=== PATIENT | female | born 1975 | race Caucasian/White ===

== ENCOUNTER 2017-12-16 15:12 | Emergency (ER) | payer MEDICARE, MEDICAID ==
[~2017-12-16] VITALS: Ht 162.6 cm; Wt 60.0 kg
[2017-12-16 15:19] VITALS: BP 134/73
[2017-12-16] MEDS ORDERED: LORazepam 1MG TABLET ONE (15:25)
[2017-12-16] MEDS ORDERED: LORazepam 1MG TABLET PO ONE (15:30)
[2017-12-16] MEDS ORDERED: PLEASE ENTER HEIGHT AND WEIGHT MC SCH (15:30)
[2017-12-16 15:41] LABS: BASOPHILS % (AUTO) 1 % (0-1); EOSINOPHILS # (AUTO) 0.03 x10^3/uL (0-0.4); EOSINOPHILS % (AUTO) 0 % (1-7); LYMPHOCYTES # (AUTO) 2.08 x10^3/uL (1-3.4); LYMPHOCYTES % (AUTO) 20 % (22-44); MD NO; MEAN CORPUSCULAR HEMOGLOBIN 24.2 pg (27.0-34.8); MEAN CORPUSCULAR HGB CONC 32.2 g/dL (32.4-35.8); MEAN PLATELET VOLUME 9.3 fL (7.4-10.4); MONOCYTES # (AUTO) 0.67 x10^3/uL (0.2-0.8); MONOCYTES % (AUTO) 6 % (2-9); NEUTROPHILS # (AUTO) 7.66 x10^3/uL (1.8-6.8); NEUTROPHILS % (AUTO) 73 % (42-75); PLATELET COUNT 318 x10^3/uL (130-400); RED BLOOD COUNT 4.95 x10^6/uL (3.82-5.3); RED CELL DISTRIBUTION WIDTH 20.2 % (9.6-15.2)
[2017-12-16 15:48] LABS: AMPHETAMINE SCREEN, URINE Positive (Negative); BARBITURATE SCREEN, URINE Negative (Negative); BENZODIAZEPINE SCREEN, URINE Negative (Negative); CANNABINOID SCREEN, URINE Positive (Negative); COCAINE SCREEN, URINE Negative (Negative); METHADONE SCREEN, URINE Negative (Negative); OPIATE SCREEN, URINE Negative (Negative)
[2017-12-16 15:51] LABS: ALANINE AMINOTRANSFERASE 21 U/L (12-78); ALBUMIN 3.9 g/dL (3.4-5.0); ANION GAP 5 mmol/L (5-15); CALCIUM 8.5 mg/dL (8.5-10.1); CHLORIDE 110 mmol/L (98-107); SALICYLATE LEVEL 3.2 mg/dL (2.8-20.0)
[2017-12-16 15:53] LABS: ACETAMINOPHEN < 2 mcg/mL (10-30)
[2017-12-16 15:56] LABS: ALKALINE PHOSPHATASE 93 U/L (45-117); BILIRUBIN,TOTAL 0.2 mg/dL (0.2-1.0); TOTAL PROTEIN 7.6 g/dL (6.4-8.2)
[2017-12-16 16:01] LABS: THYROID STIMULATING HORMONE 0.554 mIU/L (0.358-3.740)
== END 2017-12-16 17:51 ==
LOC: ED 16:50
DX: F32.3 Major depressive disorder, single episode, severe with psychotic features (principal)
CPT/HCPCS: 36415; 80053; 80307; 80329; 84443; 84703; 85025; 93005; 99285; G0480